=== PATIENT | female | born 1960 | race Two or more races ===

== ENCOUNTER 2018-01-03 19:06 | Emergency (ER) | payer MEDICAID ==
[~2018-01-03] VITALS: Ht 147.3 cm; Wt 80.9 kg
[2018-01-03 19:12] VITALS: BP 150/73
--- NOTE | 2018-01-03 19:20 | NUR ---
PT. AMBULATED TO [facility]
[2018-01-03] MEDS ORDERED: LOSA100T1 PO (19:21)
[2018-01-03] MEDS ORDERED: [UNRECOGNIZED DRUG - CODE] OP (19:24)
[2018-01-03] MEDS ORDERED: ORE25 PO (19:24)
[2018-01-03] MEDS ORDERED: SYN.05 PO (19:24)
--- NOTE | 2018-01-03 20:05 | NUR ---
PATIENT AMBULATED TO ER [facility].
--- NOTE | 2018-01-03 20:10 | NUR ---
PATIENT PRESENTS TO ED WITH C/O N/V/D. PT SKIN IS PINK/WARM/DRY; AAOX4 WITH EVEN AND STEADY GAIT; LUNGS CLEAR BL; HR EVEN AND REGULAR; PT DENIES ANY FEVER, CP, SOB, OR COUGH AT THIS TIME; PATIENT STATES PAIN 0/10 AT THIS TIME; VSS; PATIENT POSITIONED FOR COMFORT; HOB ELEVATED; BEDRAILS UP X2; BED DOWN. ER MD MADE AWARE OF PT STATUS.
[2018-01-03] MEDS ORDERED: ONDANSETRON 4 MG ODT PO ONE (20:15)
[2018-01-03] MEDS ORDERED: KETOROLAC 30 MG/ML VIAL IM ONE (20:20)
--- NOTE | 2018-01-03 20:23 | NUR ---
PT TO CT VIA W/C
--- NOTE | 2018-01-03 20:46 | NUR ---
MEDS GIVEN. LABS BEING DRAWN. PT TOLERATING WELL.
[2018-01-03 21:01] LABS: BASOPHILS # (AUTO) 0.2 K/uL (0.00-0.22); EOSINOPHILS # (AUTO) 0.3 K/uL (0-0.4); HEMATOCRIT 39.5 % (36-48); HEMOGLOBIN 13.1 g/dL (12.0-16.0); LYMPHOCYTES # (AUTO) 3.1 K/uL (2.5-16.5); MEAN CORPUSCULAR HEMOGLOBIN 29 pg (27-31); MEAN CORPUSCULAR HGB CONC 33 g/dL (33-37); MEAN CORPUSCULAR VOLUME 87 fL (80-94); MONOCYTES # (AUTO) 0.5 K/uL (0.8-1.0); NEUTROPHILS # (AUTO) 2.4 K/uL (1.8-7.7); PLATELET COUNT (AUTO) 315 K/uL (140-450); RED BLOOD CELL COUNT(AUTO) 4.53 MIL/uL (4.20-5.40); RED CELL DISTRIBUTION WIDTH 14.1 % (11.6-13.7); WHITE BLOOD COUNT (AUTO) 6.5 K/uL (4.8-10.8)
[2018-01-03 21:12] LABS: ANION GAP 13.6 (8-16); CARBON DIOXIDE 29.9 mmol/L (21-32); CREATININE 0.8 mg/dL (0.6-1.3); POTASSIUM 3.5 mmol/L (3.5-5.1)
[2018-01-03 21:20] LABS: ALBUMIN 3.7 g/dL (3.4-5.0); TOTAL BILIRUBIN 0.4 mg/dL (0.0-1.0)
[2018-01-03] MEDS ORDERED: NACL 0.9% 500 ML IV ONE (21:20)
[2018-01-03 21:41] LABS: APPEARANCE,URINE CLEAR (CLEAR); BILIRUBIN,URINE NEGATIVE (NEGATIVE); BLOOD, URINE NEGATIVE (NEGATIVE); COLOR,URINE YELLOW (YELLOW); LEUKOCYTE ESTERASE ,URINE NEGATIVE (NEGATIVE); NITRITE, URINE NEGATIVE (NEGATIVE); UGLUCOSE NEGATIVE (NEGATIVE)
[2018-01-03 23:15] VITALS: BP 149/95
--- NOTE | 2018-01-03 23:15 | NUR ---
Patient discharged with v/s stable. Written and verbal after care instructions given and explained. Patient verbalized understanding. Ambulatory with steady gait. All questions addressed prior to discharge. Advised to follow up with PMD.
== END 2018-01-03 23:15 | disposition home or self-care (01) ==
LOC: MED 19:06
DX: A08.4 Viral intestinal infection, unspecified (principal); K44.9 Diaphragmatic hernia without obstruction or gangrene; I10 Essential (primary) hypertension; Z79.899 Other long term (current) drug therapy
CPT/HCPCS: 36415; 74176; 80053; 81003; 81025; 85025; 96360; 96372; 99285; J1885; J7030; S0119; 96361; 96374